=== PATIENT | female | born 1990 | race Caucasian/White ===

== ENCOUNTER 2019-08-15 22:10 | Emergency (ER) | payer OTHER ==
[~2019-08-15] VITALS: Ht 160 cm; Wt 68.9 kg
[2019-08-15 22:13] VITALS: BP 130/90
--- NOTE | 2019-08-15 22:13 | NUR ---
TO BED # 11 AMBULATORY
--- NOTE | 2019-08-15 22:21 | NUR ---
ERMD AT BEDSIDE EVALUATING PATIENT.
--- NOTE | 2019-08-15 22:21 | NUR ---
29 Y/O FEMALE BIB SELF FOR COUGH, RUNNYNOSE, HEADACHE, CANT BREATH FOR 4 DAYS, SORE ON HER HEAD. RHONCHI HEARD IN THE UPPER APICES (ANTERIOR/POSTERIOR) BILATERALLY. COUGH IS PRODUCTIVE. PAIN IS A 4/10 THAT IS PROVOKED BY COUGHING. SPO2 100% ON RA; 17 RR. ERMD MADE AWARE OF STATUS. SIDE RAILX1. WILL CONTINUE TO MONITOR. PMH:SMOKER RX:DENIES ALLERGIES:ASA
[2019-08-15] MEDS ORDERED: ALBUTEROL 0.083% 2.5 MG/3 ML NEBU INH ONE (22:30)
--- NOTE | 2019-08-15 22:36 | NUR ---
ERMD AND RT AT BEDSIDE.
[2019-08-15] MEDS ORDERED: ACETAMINOPHEN EXTRA STRENGTH 500 MG TAB PO ONE (23:55)
[2019-08-16] MEDS ORDERED: ACETAMINOPHEN EXTRA STRENGTH 500 MG TAB PO ONE (00:05)
--- NOTE | 2019-08-16 00:12 | NUR ---
ADMINISTERED ACETAMINOPHEN, TYLENOL 500MG FOR PAIN.
--- NOTE | 2019-08-16 00:15 | NUR ---
ACCIDENTALLY CHARTED ON ACETAMINOPHEN 1,000MG. ORDER NO LONGER INDICATED.
[2019-08-16 00:18] VITALS: BP 125/88
--- NOTE | 2019-08-16 00:18 | NUR ---
Patient discharged with v/s stable. Written and verbal after care instructions given and explained. Patient alert, oriented and verbalized understanding of instructions. Ambulatory with steady gait. All questions addressed prior to discharge. ID band removed. Patient advised to follow up with PMD. Rx of VENTOLIN given. Patient educated on indication of medication including possible reaction and side effects. Opportunity to ask questions provided and answered.
== END 2019-08-16 00:18 | disposition home or self-care (01) ==
LOC: MED 22:10
DX: J40 Bronchitis, not specified as acute or chronic (principal); B34.9 Viral infection, unspecified; J43.9 Emphysema, unspecified; F17.210 Nicotine dependence, cigarettes, uncomplicated; Z88.6 Allergy status to analgesic agent; Z71.6 Tobacco abuse counseling
CPT/HCPCS: 87804; 94640; 99283; J7613